=== PATIENT | female | born 1980 | race Caucasian/White ===

== ENCOUNTER 2018-09-15 12:32 | Outpatient (CLI) | payer OTHER ==
--- NOTE | 2018-09-15 13:32 | ULT ---
FExam: Bilateral renal ultrasound HISTORY: Hematuria COMPARISON: None FINDINGS: Right kidney: Normal cortical echotexture. No hydronephrosis. Right kidney measurements: 4.9 x 10.2 x 4.7 cm. Left kidney: Normal cortical echotexture. No hydronephrosis Left kidney measurements 4.9 x 10.1 x 4.8 cm Urinary bladder: Decompressed. Limited evaluation. IMPRESSION: No hydronephrosis.
--- NOTE | 2018-09-15 13:39 | RAD ---
F1 view abdomen series CLINICAL INDICATION: Pain, hematuria FINDINGS: Lung basesnot visualized. No suspicious calcifications are seen overlying either renal shadow or the pelvis. Moderate retained fecal material is seen within colon. No acute osseous pathology. IMPRESSION: No definite pathologic calcification is identified.
== END 2018-09-15 12:33 | disposition home or self-care (01) ==
LOC: BICULT 12:32
PROVIDERS: ATTEND Family Medicine
DX: R10.30 Lower abdominal pain, unspecified (principal); R31.9 Hematuria, unspecified
CPT/HCPCS: 74018; 76770

== ENCOUNTER 2019-05-06 12:58 | Emergency (ER) | payer OTHER ==
--- NOTE | 2019-05-06 13:40 | RAD ---
2 view chest: [05/06/2019] Comparison:None available HISTORY: Flu symptoms, cough FINDINGS: Heart and mediastinal contours are grossly unremarkable. No pneumothorax or pleural fluid. No focal consolidation or alveolar edema. IMPRESSION: No acute findings.
[2019-05-06] MEDS ORDERED: Ibuprofen 800 MG TAB ONE (14:03)
== END 2019-05-06 14:09 | disposition home or self-care (01) ==
LOC: ERS 12:58
DX: J06.9 Acute upper respiratory infection, unspecified (principal); Z71.6 Tobacco abuse counseling
CPT/HCPCS: 71046; 99406

== ENCOUNTER 2019-10-18 13:49 | Outpatient (CLI) | payer OTHER ==
--- NOTE | 2019-10-18 14:16 | RAD ---
EXAM: Two views chest PROVIDED CLINICAL HISTORY: Smoker, anemia. COMPARISON: 05/06/2019 FINDINGS: Cardiac silhouette and pulmonary vasculature are within normal limits. The lungs are clear. The osse ous structures have a normal appearance. No interval change from prior study. IMPRESSION: No acute cardiopulmonary process.
--- NOTE | 2019-10-18 14:59 | MMO ---
Bilateral MAMMO Bilat Diag [facility]. CLINICAL HISTORY: Patient is 39 years old and is seen for diagnostic exam and palpable abnormality in the left breast. The patient has the following family history of breast cancer: paternal grandmother. The patient has a history of bone cancer. VIEWS: The views performed were: bilateral craniocaudal with tomosynthesis; bilateral mediolateral oblique with tomosynthesis; bilateral mediolateral with tomosynthesis; and bilateral exaggerated craniocaudal with tomosynthesis. FILMS COMPARED: The present examination has been compared to a prior imaging study performed at [facility] on 10/18/2019. This study has been interpreted with the assistance of computer-aided detection. MAMMOGRAM FINDINGS: There are scattered fibroglandular densities. There is an irregular mass measuring 17 millimeters with microlobulated margins seen in the posterior upper-outer region of the left breast. Ultrasound shows a noncystic nonspecific lesion The patient was informed of the exam results. Dr. Salazar at the office of the patient's referring physician, Anne-Marie Salazar, was notified of the exam results by telephone on 10/18/2019 2:55 pm. In the right breast, there are no suspicious masses, calcifications or areas of architectural distortion. IMPRESSION: MASS IN THE LEFT BREAST IS SUSPICIOUS. AN ULTRASOUND-GUIDED BREAST BIOPSY IS RECOMMENDED. THE RESULTS OF THIS EXAM WERE SENT TO THE PATIENT. ACR BI-RADS Category 4 - Suspicious abnormality - biopsy should be considered MAMMOGRAPHY NOTE: 1. A negative mammogram report should not delay a biopsy if a dominant of clinically suspicious mass is present. 2. Approximately 10% to 15% of breast cancers are not detected by mammography. 3. Adenosis and dense breasts may obscure an underlying neoplasm. Reported by: RONALD TINOCO MD Electonically Signed: [id number]
--- NOTE | 2019-10-18 15:13 | ULT ---
ULTRASOUND LEFT BREAST LIMITED: 10/18/19 HISTORY: 39-year-old female with growing palpable lump in left upper outer quadrant. Dr. Vegas discussed the findings and recommendation for ultrasound guided biopsy with the patient immed iately after the ultrasound, then with Dr. Salazar by telephone at 2:55 p.m. on 10/18/2019. TECHNIQUE: A focused ultrasound of posterior left upper outer quadrant at the location of the palpable lump. FINDINGS: At approximately the 2 o'clock position, 6 cm from the nipple, there is an approximately 1.2 x 0.9 x 1.5 cm lesion with lobular margins and heterogeneous mixed internal echogenicity. It has no significa nt acoustic shadowing. It does appear to be taller than wide on one of the images. It is not cystic. No increased vascularity by Doppler. IMPRESSION: 1. BI-RADS 4: Suspicious Abnormality - Biopsy Should Be Considered Usually requires biopsy 2. Recommend ultrasound guided biopsy of the mass in the posterior left upper outer quadrant. Code CR
--- NOTE | 2019-10-18 15:26 | ULT ---
Pelvic sonogram transabdominal imaging with duplex evaluation HISTORY: Metromenorrhagia. FINDINGS: Urinary bladder is incompletely distended. Uterus has a heterogeneous echotexture and is 7. 0 cm length. Endometrium is 0.8 cm. Physiologic amount of free fluid within the pelvis. Right ovary is 3.7 cm with good color and spectral Doppler flow. Left ovary is 3.8 cm. Dominant follicle 2.3 cm. Good color and spectral Doppler flow. IMPRESSION : No abnormalities are demonstrated.
== END 2019-10-18 13:50 | disposition home or self-care (01) ==
LOC: BICULT 13:49
PROVIDERS: ATTEND Family Medicine
DX: D64.9 Anemia, unspecified (principal); F17.200 Nicotine dependence, unspecified, uncomplicated; N92.0 Excessive and frequent menstruation with regular cycle; N63.21 Unspecified lump in the left breast, upper outer quadrant
CPT/HCPCS: 71046; 76856; 77066; 93976; G0279

== ENCOUNTER → 2019-10-26 | Day surgery (SDC) | payer OTHER ==
--- NOTE | 2019-10-26 13:39 | MMO ---
Left Breast MAMMO Unilat Diag [facility]. CLINICAL HISTORY: Patient is 39 years old and is seen for diagnostic exam. VIEWS: The views performed were: . FILMS COMPARED: The present examination has been compared to a prior imaging study performed at [facility] on 10/18/2019. This study has been interpreted with the assistance of computer-aided detection. MAMMOGRAM FINDINGS: The breast is heterogeneously dense, which could obscure a lesion on mammography. There is a new biopsy clip seen in the left breast. IMPRESSION: NEW BIOPSY CLIP IN THE LEFT BREAST IS CONFIRMED UTILIZING POST PROCEDURE MAMMOGRAM. THE RESULTS OF THIS EXAM WERE SENT TO THE PATIENT. MAMMOGRAPHY NOTE: 1. A negative mammogram report should not delay a biopsy if a dominant of clinically suspicious mass is present. 2. Approximately 10% to 15% of breast cancers are not detected by mammography. 3. Adenosis and dense breasts may obscure an underlying neoplasm. Reported by: CLOTILDE THOMAS MD Electonically Signed: [id number]
--- NOTE | 2019-10-26 13:39 | ULT ---
EXAM: Ultrasound-guided left breast biopsy PROVIDED CLINICAL HISTORY: 2:00 left breast mass COMPARISON: Ultrasound and diagnostic mammogram 10/18/2019 FINDINGS: Limited sonographic interrogation was performed of the left breast, with localization of the previous ly described mass. Informed consent was obtained from the patient. The skin overlying this region was prepped and draped in the usual sterile manner and the soft tissues anesthetized with 1% buffered lidocaine. A small skin incision was made. Continuous ultrasound guidance was utilized to obtain 4 core samples of the mass. Subsequently, continuous ultrasound guidance was utilized to place a biopsy site marker. [place] were withdrawn and hemostasis achieved. No immediate complications. IMPRESSION: Technically successful left breast biopsy. Please correlate with histology results to follow.
== END ==
LOC: BICULT 12:47
PROVIDERS: ATTEND Family Medicine
PROC: 0H9U3ZX Drainage of Left Breast, Percutaneous Approach, Diagnostic (ICD-10-PCS; principal; 2019-10-26)
DX: N62 Hypertrophy of breast (principal)
CPT/HCPCS: 19083; 88305; 88341; 88342

== ENCOUNTER 2020-09-27 14:12 | Outpatient (CLI) | payer OTHER ==
[~2020-09-27 14:12] MED LIST: Iopamidol 370 76% 100 ML VIAL ONE
== END 2020-09-27 14:13 | disposition home or self-care (01) ==
LOC: BICCT 14:12
PROVIDERS: ATTEND Otolaryngology Otolaryngic Allergy
DX: K11.5 Sialolithiasis (principal); R93.0 Abnormal findings on diagnostic imaging of skull and head, not elsewhere classified
CPT/HCPCS: 70491; Q9967